=== PATIENT | female | born 1985 | race African-American/Black ===

== ENCOUNTER 2021-05-04 10:24 | Emergency (ER) | payer MEDICAID, SELFPAY ==
[2021-05-04 14:15] LABS: BHCG - Serum Negative (NEGATIVE); Pregs Control Background? CLEAR/WHITE (CLR/WHITE); Pregs Control Bar Appear? YES (CONTROL BAR)
== END 2021-05-04 15:38 | disposition home or self-care (01) ==
LOC: CSHERS 10:24
DX: U07.1 COVID-19 (principal); R04.2 Hemoptysis
CPT/HCPCS: 71045; 71275; 84703

== ENCOUNTER 2022-10-28 20:20 | Emergency (ER) | payer OTHER ==
[2022-10-28] MEDS ORDERED: Diazepam 5 MG TAB ONE (22:01)
[2022-10-28] MEDS ORDERED: Ibuprofen 800 MG TAB ONE (22:03)
== END 2022-10-28 22:15 | disposition home or self-care (01) ==
LOC: CSHERS 20:20
DX: S80.01XA Contusion of right knee, initial encounter (principal); M54.2 Cervicalgia; V43.52XA Car driver injured in collision with other type car in traffic accident, initial encounter